=== PATIENT | female | born 1990 | race Caucasian/White ===

== ENCOUNTER 2022-06-07 13:56 | Emergency (ER) | payer OTHER, SELFPAY ==
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
[2022-06-07 14:09] VITALS: BP 123/87; PULSE 87; RESP 16; TEMP 36.8; O2SAT 100
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
== END 2022-06-07 15:25 | disposition home or self-care (01) ==
PROVIDERS: Emergency Provider Nurse Practitioner Family
DX: S16.1XXA Strain of muscle, fascia and tendon at neck level, initial encounter (principal); S40.212A Abrasion of left shoulder, initial encounter; V49.40XA Driver injured in collision with unspecified motor vehicles in traffic accident, initial encounter
CPT/HCPCS: 70110; 72050; 99214; G0463

== ENCOUNTER 2022-08-16 18:52 | Emergency (ER) | payer OTHER, SELFPAY ==
--- NOTE | 2022-08-16 18:56 | ED.WOUNDLAC ---
HPI - Wound/Laceration General Chief Complaint: Wound/Laceration Stated Complaint: laceration lt foot Time Seen by Provider: 08/16/22 18:56 Source: patient Mode of arrival: ambulatory Limitations: no limitations History of Present Illness HPI narrative: Patient is a 31-year-old female who presents with laceration to left great toe after dropping a glass bowl on toe an hour ago. Patient states it was bleeding steadily so she super glued it. Patient states it is still bleeding and the skin feels loose. Denies any decreased sensation or inability to move toe. States has been told her he saw bone. Unsure when last tetanus shot was. Related Data Home Medications Medication Instructions Recorded Confirmed No Home Medications 08/16/22 08/16/22 Allergies Allergy/AdvReac Type Severity Reaction Status Date / Time No Known Allergies Allergy Verified 08/16/22 19:02 Review of Systems Review of Systems: All systems reviewed & are unremarkable except as noted in HPI and below Constitutional: Constitutional: Denies body ache(s), Denies chills, Denies fatigue, Denies fever(s), Denies headache(s), Denies malaise and Denies weakness Eyes: Eyes: Denies blurry vision, Denies irritation and Denies loss of vision ENT: Denies otalgia, Denies headache(s), Denies nasal discharge, Denies sinus pain and Denies sore throat Cardiovascular: Cardiovascular: Denies chest pain, Denies irregular heart rhythm and Denies dyspnea Respiratory: Respiratory: Denies dyspnea Gastrointestinal: Gastrointestinal: Denies abdominal pain, Denies melena, Denies hematochezia, Denies diarrhea, Denies nausea and Denies vomiting Musculoskeletal: Musculoskeletal: Denies back pain, Denies myalgias and Denies arthralgias Integumentary/Breasts: Skin/Breast: Denies pruritus, Denies rash and Reports wounds Neurologic: Denies headache(s), Denies loss of vision and Denies weakness Psychiatric: Psychiatric: Reports no additional psychiatric complaints Endocrine: Endocrine: Denies fatigue PMFSH Comments At time of signature, agree with nursing past medical, surgical, social and family history. There is no relevant family history pertinent to the presenting complaint. Exam Const: General: cooperative, healthy appearing, comfortable, no acute distress and well nourished Nutritional Appearance: well nourished Orientation/consciousness: patient oriented x3 Limitations: no limitations HENMT: Head: normal to inspection, normocephalic and atraumatic Ears: hearing grossly normal bilaterally and external ears normal Face/Nose/Sinus: Normal external nose present, normal facial exam and face symmetric Face and sinus: normal facial exam and face symmetric Mouth: Yes lip normal Eyes: General: appearance normal, both eyes and all related structures Alignment and Position: alignment normal and position normal Periorbital: periorbital findings normal Eyelids: eyelids normal Pupils: Equal, round and reactive pupils present EOM: EOMs intact bilaterally Neck: Neck: normal visual inspection, full ROM and supple Chest: Chest palpation & inspection: normal inspection of the chest Resp: Effort & Inspection: normal respiratory effort and able to speak in complete sentences Auscultation: clear to auscultation bilaterally Cardio: Rate: regular rate Rhythm: regular rhythm Heart sounds: S1 normal heart sound present and S2 normal heart sound present GI: Inspection: normal to inspection Skin: General skin exam: normal color and no rashes or lesions noted Neuro: General: patient oriented x3 and moves all extremities Cranial nerves: Yes Equal, round and reactive pupils present Speech: normal speech Gait exam (Neuro): Normal gait present Extrem: General: normal to inspection, full ROM and no edema Left lower extremity: foot Details: normal capillary refill, toes with normal ROM, no edema, laceration dorsal great toe linear (1.5 cm), actively bleeding, involving subcutaneous
[2022-08-16 19:06] VITALS: BP 115/78; PULSE 76; RESP 15; TEMP 36.8; O2SAT 100
== END 2022-08-16 19:42 | disposition short-term general hospital (02) ==
PROVIDERS: Emergency Provider Nurse Practitioner Family; PCP Nurse Practitioner Adult Health
DX: S91.112A Laceration without foreign body of left great toe without damage to nail, initial encounter (principal); W25.XXXA Contact with sharp glass, initial encounter
CPT/HCPCS: 99212; G0463

== ENCOUNTER 2022-08-16 19:56 | Emergency (ER) | payer OTHER, SELFPAY ==
--- NOTE | ~2022-08-16 | XR_ITS ---
EXAMINATION: XR toe 1st LT min 2V DATE: 08/16/2022 20:42 INDICATION: Left great toe laceration. TECHNIQUE: 4 views of left great toe were obtained. COMPARISON: None. FINDINGS: Bone alignment is normal. No fracture. Joint spaces are well maintained. IMPRESSION: 1. No fracture or radiopaque foreign body. Reviewed, dictated and finalized at location E.
[2022-08-16 19:57] VITALS: BP 114/76; PULSE 77; RESP 16; TEMP 36.8; O2SAT 100
--- NOTE | 2022-08-16 20:49 | ED.WOUNDLAC ---
HPI - Wound/Laceration General Chief Complaint: Wound/Laceration Stated Complaint: toe laceration Time Seen by Provider: 08/16/22 20:09 Source: patient Mode of arrival: ambulatory Limitations: no limitations History of Present Illness HPI narrative: Patient is a 31 y/o female who presents to the ED with c/o laceration to her L 1st toe. Patient reports she dropped a glass bowl at her home earlier tonight and the bowl shattered. She sustained a laceration to her dorsal foot, left first toe, over the area of her first MTP joint. Patient attempted to superglue the laceration, but it continued bleeding. She went to an urgent care and was referred here for further evaluation and for x-ray imaging as they thought that they can see bone through the laceration. Patient's tetanus status unknown, though she refused tetanus at the urgent care. Patient denies any numbness, tingling. She has been able to ambulate. Related Data Home Medications Medication Instructions Recorded Confirmed No Home Medications 08/16/22 08/16/22 Allergies Allergy/AdvReac Type Severity Reaction Status Date / Time No Known Allergies Allergy Verified 08/16/22 19:02 Review of Systems Review of Systems: CONSTITUTIONAL: Denies fever, chills, or sweats. SKIN: See HPI. NEUROLOGIC: Denies tingling, numbness, or weakness. All systems reviewed & are unremarkable except as noted in HPI and below Exam Narrative: GENERAL: Well appearing, thin, non-toxic, in no acute distress. HEAD: Normocephalic, atraumatic. NECK: Supple. No adenopathy, no masses. RESPIRATORY: Airway patent, respirations nonlabored. Clear to auscultation bilaterally, no rales, rhonchi, wheezing. CARDIOVASCULAR: Regular rate and rhythm without murmurs, rubs, or gallops. Pedal pulses 2+ and equal bilaterally. MUSCULOSKELETAL: Moves all extremities. Strength/ROM intact without gross deformities. 1 cm linear horizontal laceration over first MTP of left foot, no active bleeding. Distal sensation and capillary refill intact. Patient able to bend toes. SKIN: Warm, dry, normal color. No rashes. NEURO: A&O X3. Speech clear. Cranial nerves II-XII grossly intact. Steady gait. No ataxic movements. PSYCHIATRIC: Appropriate mood and affect. Normal interaction. Course Vital Signs Vital signs: Vital Signs Temperature 98.2 F 08/16/22 19:57 Pulse Rate 77 08/16/22 19:57 Respiratory Rate 16 08/16/22 19:57 Blood Pressure 114/76 08/16/22 19:57 Pulse Oximetry 100 08/16/22 19:57 Oxygen Delivery Room Air 08/16/22 19:57 Temperature 98.2 F 08/16/22 19:57 Pulse Rate 68 08/16/22 21:34 Respiratory Rate 15 08/16/22 21:34 Blood Pressure 116/72 08/16/22 21:34 Pulse Oximetry 100 08/16/22 21:34 Oxygen Delivery Room Air 08/16/22 19:57 Procedures Laceration Laceration 1: Date: 08/16/22 Time: 21:10 Site: lower extremity (1st toe) Side (If applicable): left Size (cm): 1 Description: linear Depth: simple, single layer Local Anesthetic: lidocaine 1% Amount of anesthesia used (mL): 3 Pre-repair: wound explored and irrigated ====== Skin Level ====== Skin layer closed with: nylon Size (cm): 5-0 Number of sutures: 2 Technique: simple, interrupted ====== Subcutaneous Layer ====== ====== Muscle Layer ====== ====== Tendon Layer ====== MDM - Wound/Laceration MDM Narrative Medical decision making narrative: Patient presented to ED with laceration to left dorsal foot over first MTP joint. Patient neurovascularly intact. No active bleeding upon my evaluation. X-ray without evidence for foreign body or fracture. Laceration repaired without complications. Patient believes her tetanus is up-to-date, refused tetanus shot in the ED. Given wound care instructions and reasons to return. Discharged in stable condition. Medical Records Attestation: I reviewed the
[2022-08-16] MEDS: LIDOCAINE HCL 1% LOCAL INJ 10 ML VIAL 5 ML INFILTRATE (21:05)
[2022-08-16 21:34] VITALS: BP 116/72; PULSE 68; RESP 15; O2SAT 100
== END 2022-08-16 21:36 | disposition home or self-care (01) ==
PROVIDERS: Emergency Provider Physician Assistant; PCP Nurse Practitioner Adult Health
DX: S91.112A Laceration without foreign body of left great toe without damage to nail, initial encounter (principal); W20.8XXA Other cause of strike by thrown, projected or falling object, initial encounter; W25.XXXA Contact with sharp glass, initial encounter
CPT/HCPCS: 12001; 73660; 99283